=== PATIENT | female | born 1995 | race Caucasian/White ===

== ENCOUNTER 2017-08-20 15:05 | Emergency (ER) | payer MEDICAID, OTHER ==
--- NOTE | 2017-08-20 15:29 | CPEKG ---
Heart Rate: 96 RR Interval: 625 P-R Interval: 136 QRSD Interval: 70 QT Interval: 332 QTC Interval: 420 P [place]: 70 QRS [place]: 80 T Wave [place]: 17 EKG Severity - NORMAL ECG - EKG Impression: SINUS RHYTHM Electronically Signed By: Ai Reza 20-Aug-2017 16:41:53
[2017-08-20] MEDS ORDERED: NS 500 ML IV ONE (15:39)
--- NOTE | 2017-08-20 15:50 | EDPHY ---
H & P Time Seen by Provider: 08/20/17 15:28 HPI/ROS: HPI Chest pain, palpitations. 22-year-old female by private vehicle with her boyfriend. This patient reports that yesterday afternoon she had a 10 sec episode of which she describes as palpitations in her heart skipping beats. This was followed by a sensation of tingling in both of her hands and some pain in her left elbow. She reports that since this time and ongoing today she has had which she describes as chest tightness and a sensation of mild shortness of breath. She reports that she has had intermittent palpitations in the past similar to what she had yesterday but without the other associated symptoms as described. She has no prior history of arrhythmia. ROS: Constitutional: No fever, no chills. No weakness. Eyes: No discharge. No changes in vision. ENT: No sore throat. No nasal congestion or rhinorrhea. Respiratory: No cough. As above. Cardiac: As above. Gastrointestinal: No abdominal pain, no vomiting, no diarrhea. Genitourinary: No hematuria. No dysuria or increased frequency with urination. Musculoskeletal: No back pain. No neck pain. As above. Skin: No rashes. Neurological: No headache. No focal weakness or altered sensation. Past medical history: Ulcerative proctitis. She does not take prescription medications. She denies any other significant past medical history. Social history: She drinks caffeinated beverages daily and has been for multiple years. Nonsmoker. Drinks alcohol occasionally. She is here with her boyfriend. Denies IV drugs or street drugs. Physical Exam: General Appearance: Alert, mildly anxious but not in distress. This patient is responding to questions appropriately and in full sentences. This patient appears well-hydrated and well-nourished. Eyes: Pupils equal and round no pallor or injection. No lid edema, erythema or injection. Respiratory: There are no retractions, lungs are clear to auscultation with good air movement bilaterally. Cardiovascular: Regular rate and rhythm. No murmur. Gastrointestinal: Abdomen is soft and nontender, no masses, bowel sounds normal. No focal tenderness at McBurney's point. No Fletcher sign. Neurological: Motor sensory function is grossly intact. Cranial nerves are normal. Gait is normal. Skin: Warm and dry, no rashes. Musculoskeletal: Neck is supple and nontender. Extremities are symmetrical. All joints range without pain or impingement. Psychiatric: No agitation. No depression. Database: EKG: EKG time is 3:26 p.m.; EKG shows a narrow complex normal sinus rhythm with a ventricular rate of 96. The GA, QRS, QT intervals are within normal limits. There are no ST-T wave changes indicative of ischemic or injury pattern. No evidence of right heart strain. No evidence of WPW, Brugada syndrome, hypertrophic cardiomyopathy. Interpreted by me. Imaging: Chest x-ray AP portable; the cardiac mediastinal silhouette is unremarkable. No evidence of infiltrate or pneumothorax. No acute cardiopulmonary disease process noted. Interpreted by me. Procedures: Emergency department course: IV placed. Patient was placed on a monitor. Triage vital signs reviewed. She is moderately hypertensive. Heart rate was 111. Vital signs otherwise normal. I offered her medication for anxiety but she declines. EKG obtained and reviewed by myself. 5:30 p.m., patient re-evaluated. Blood work is unremarkable. EKG and chest x- ray normal. Heart score is 0. The patient feels comfortable going home at this time. She is asymptomatic. Denies any shortness of breath or chest pain. I will have her follow up with her primary care physician next week for re- evaluation. She has been instructed not to drink caffeinated beverages. Return to emergency department precautions were reviewed thoroughly with her. All of her questions were answered. She was discharged from the emergency department in good condition with her boyfriend. Differential Diagnosis: The differential diagnosis on this patient includes but is not limited to anxiety reaction. Arrhythmia, myocarditis, pericarditis, pulmonary embolism, acute coronary syndrome, pheochromocytoma unlikely. This represents a partial list of diagnoses considered. These considerations are based on history, physical exam, past history, reassessment and diagnostic testing. Smoking Status: Never smoked Constitutional: Initial Vital Signs Temperature (C) 36.9 C 08/20/17 15:11 Heart Rate 111 H 08/20/17 15:11 Respiratory Rate 20 08/20/17 15:11 Blood Pressure 145/89 H 08/20/17 15:11 O2 Sat (%) 97 08/20/17 15:11 O2 Delivery Mode Room Air Allergies/Adverse Reactions: No Known Allergies Allergy (Unverified 08/20/17 15:10) Home Medications: Medication Instructions Recorded NK [No Known Home Meds] 08/20/17 Medical Decision Making - Data Points Laboratory Results: Laboratory Results 08/20/17 16:00 08/20/17 16:00 Medications Given: Discontinued Medications Sodium Chloride (Ns) 500 mls @ 1,000 mls/hr IV EDNOW ONE PRN Reason: Protocol Stop: 08/20/17 16:08 Last Admin: 08/20/17 16:00 Dose: 500 mls Departure - Departure Disposition: Home, Routine, Self-Care Clinical Impression: Palpitations, Anxiety reaction, Elevated blood pressure reading Condition: Good Instructions: Heart Palpitations (ED), Anxiety (ED) Additional Instructions: Read and follow provided instructions. Follow-up with your primary care physician early this week for re-evaluation. I want your blood pressure rechecked at this time. Avoid caffeinated beverages and energy drinks. Return to the emergency department for worsening symptoms, chest pain, palpitations, lightheadedness or other serious concerns. Referrals: NONE *PRIMARY CARE P,. [Primary Care Provider] - As per Instructions
[2017-08-20 17:04] LABS: PLATELET COUNT 303 10^3/uL (150-400)
[2017-08-20 17:59] VITALS: BP 117/58
== END 2017-08-20 17:56 | disposition home or self-care (01) ==
DX: R00.2 Palpitations (principal); F41.1 Generalized anxiety disorder; R03.0 Elevated blood-pressure reading, without diagnosis of hypertension; E86.9 Volume depletion, unspecified